=== PATIENT | female | born 1940 | race Caucasian/White ===

== ENCOUNTER 2017-04-20 21:30 | Inpatient (IN) | payer MEDICARE ==
[~2017-04-20 21:30] MED LIST: ISOVUE-370 76%-LOCM 1 ML ONE
[2017-04-20 22:16] LABS: Mean Platelet Volume 8.8 fL (7.4-10.4); Neutrophil 54 % (42-75); Red Blood Cell (RBC) Count 4.43 mill/uL (4.20-5.40); White Blood Cell (WBC) Count 8.2 thou/uL (4.8-10.8)
[2017-04-20 22:23] LABS: ALT (SGPT) 12 U/L (8-55); AST (SGOT) 15 U/L (5-34); Alkaline Phosphatase 42 U/L (40-150); Anion Gap 14 mmol/L (10-20); BUN (Urea Nitrogen) 28 mg/dL (9.8-20.1); Bilirubin, Total 0.2 mg/dL (0.2-1.2); Calc. Creatinine Clearance 0 mL/min (70-130); Calcium 9.3 mg/dL (7.8-10.44); Carbon Dioxide 25 mmol/L (23-31); Chloride 104 mmol/L (98-107); Estimated GFR-MDRD 52; Globulin 3.5 g/dL (2.4-3.5); Lipase 303 U/L (8-78); Protein, Total 7.1 g/dL (6.0-8.3)
[2017-04-20 22:26] LABS: Troponin I Less than 0.010 ng/mL (< 0.028)
[2017-04-20] MEDS ORDERED: Acetaminophen 500 MG TAB ONE (22:40)
--- NOTE | 2017-04-20 23:46 | CT ---
CT ABDOMEN WITH IV CONTRAST CT PELVIS WITH IV CONTRAST: Date: 04-20-17 History: Abdominal pain all day today. Comparison: 04-07-16 FINDINGS: Superior aspect of the dome of the liver is not imaged. Limited visualized lung bases are clear. Liver demonstrates mild decreased attenuation suggesting mild fatty infiltration. A gastric band is again noted in place and unchanged in position. The spleen, pancreas, bilateral adrenal glands, kidneys, and urinary bladder demonstrate a normal CT appearance. There is evidence of prior hysterectomy. Colonic diverticulosis is again present. No dilated loops of small bowel are present. There has been no interval change when compared to the prior exam. IMPRESSION: 1. No acute findings are seen in the abdomen or pelvis. 2. Gastric band in place and unchanged in position. 3. Colonic diverticulosis. 4. Hysterectomy. POS: [facility]
[2017-04-20 23:50] LABS: Bilirubin Negative (Negative); Blood, Urine Trace (Negative); Glucose, Urine (Dipstick) Negative (Negative); Ketone, Urine Negative (Negative); Nitrite Negative (Negative); Protein, Urine (Dipstick) Negative (Neg-Trace)
[2017-04-20 23:54] LABS: Bacteria/HPF None Seen HPF (None Seen); Hyaline Casts/LPF 0-3 HYALINE CAST LPF (0-3 Hyaline); Squamous Epithelial None Seen HPF (0-3); WBC/HPF None Seen HPF (0-3)
[2017-04-21] MEDS ORDERED: Ondansetron HCl/PF 4 MG/2 ML Vial IVP PRN (00:48)
[2017-04-21] MEDS ORDERED: Ondansetron ODT 4 MG TAB SL PRN (00:48)
[2017-04-21] MEDS ORDERED: Sodium Chloride 0.9% 1,000 ML IV SCH (00:49)
[2017-04-21 01:17] VITALS: BMI 37.7
[2017-04-21] MEDS: Sodium Chloride 0.9% 1,000 ML IV SCH ×3 (01:50→12:09)
[2017-04-21] MEDS ORDERED: Ondansetron ODT 4 MG TAB PO PRN (01:51)
[2017-04-21] MEDS ORDERED: Labetalol HCl 100 MG/20 ML VIAL SLOW IVP PRN (01:51)
[2017-04-21] MEDS ORDERED: Acetaminophen 650 MG in Premix Bag 1 BAG IVPB PRN (01:51)
--- NOTE | 2017-04-21 02:18 | HP ---
PRIMARY CARE PHYSICIAN: Dr. Ellison. CHIEF COMPLAINT: Abdominal pain. HISTORY OF PRESENT ILLNESS: Ms. Barajas is a pleasant 77-year-old female that has a history of Park inson's disease as well as hypertension and hypothyroidism. She was in her usual state of health un til this morning when she began having abdominal pain. She says it feels like somebody punched her in the stomach and it is a constant pain that has gotten progressively worse over the course of the day. She says it went around to the right side and she thought she may have had a kidney stone. Sona cazares says that she is unsure whether or not it is related to eating, but at lunch and dinner, the pain did get progressively worse. She had some nausea, but no vomiting. Her bowels have been normal and she rated the pain at about 8/10 and due to the severity of the pain, this is the reason she came t o the emergency room. In the ER, she had a CT scan of her abdomen, which was essentially negative, but her lipase was elevated at 303 and she is being admitted for presumed pancreatitis. She says sona cazares has never had any symptoms like this before and her abdominal surgeries include a lap band surgery in which she says that the lap band was complicated by having \\\\"hole in it\\\\" and a hysterectomy s he has had, but no other abdomen or pelvic surgeries. She says that her triglycerides were high, bu t only slightly high, and she does still have her gallbladder. She denies having any fevers or chil ls. REVIEW OF SYSTEMS: Constitutional: Again, no fevers, chills, no night sweats, no weight loss. RAYMUNDO NT: No headache, dizziness, visual changes, no sore throat, rhinorrhea, neck pain, no adenopathy. Pulmonary: No hemoptysis, no cough, no wheezing. Cardiovascular: She denies any chest pain or josh rtness of breath, no PND, no orthopnea. Gastrointestinal: As the history of present illness. Dora tourinary: No urinary frequency, hematuria or hesitancy. Neurologic: No focal weakness, numbness, no seizures. Psychiatric: No symptoms of anxiety or depression. Skin and Integument: No skin ch anges. No rash. PAST MEDICAL HISTORY: Significant for Parkinson's disease, cerebrovascular accident, hypothyroidism , hyperlipidemia, and hypertension. PAST SURGICAL HISTORY: She has had bilateral carpal tunnel release, bilateral total knee replacemen t, hysterectomy as well as a gastric lap band surgery. ALLERGIES: She says she cannot take NARCOTICS. SOCIAL HISTORY: She is a nonsmoker, nondrinker. Denies any drug use. FAMILY HISTORY: Significant for lung cancer in her father. Mother had dementia. CURRENT MEDICATIONS: Include Ultram 50-100 mg q.6 hours as needed, Bystolic 5 mg daily, levothyroxi ne 137 mcg daily, fenofibrate 134 mg daily, diclofenac 75 mg twice a day, Plavix 75 mg daily, vitami n D3 1000 units daily, carbidopa/levodopa 25/100 daily and aspirin 81 mg a day. PHYSICAL EXAMINATION: GENERAL: She is alert and oriented. She appears to be in no acute distress. VITAL SIGNS: Her blood pressure was 172/85, heart rate 68, respiratory rate 18, temperature is 98.8 . HEENT: Pupils are equal, round, and reactive. Extraocular muscles are intact. Her sclerae are ani cteric. Throat no erythema, no exudates. NECK: No adenopathy, no bruits. LUNGS: Clear. No wheezing, no rales. CARDIOVASCULAR: She has a normal S1, S2. I do not appreciate an S3 or S4. No murmurs, clicks or r ubs. ABDOMEN: Obese, it is soft. She has got some diffuse tenderness. There is no rebound, no guarding . Positive bowel sounds. EXTREMITIES: She has got some mild ankle edema. Her dorsalis pedis pulses are palpable. NEUROLOGICALLY: Exam is nonfocal. SIGNIFICANT LABORATORY DATA: White blood cell count 8.2, hemoglobin 13.6, hematocrit is 42, platele t count is 171. Sodium 139, potassium 4.3, chloride is 104, CO2 is 25, BUN of 28, creatinine 1.02, glucose is 110, lipase was 303. Urinalysis had some trace blood and 11-20 RBCs. ASSESSMENT AND PLAN: This is a 77-year-old female that presents to the emergency room with abdomina l pain as well as elevation in her lipase. She may have a mild pancreatitis, the etiology of which is unclear. She will be admitted to the medical floor and placed on bowel rest and IV fluids. Ther e is no mention of her gallbladder on the CT scan, therefore, we will get an abdominal ultrasound to see whether or not she has any gallstones or sludge in the gallbladder. We will also get a lipid p tyson to check her triglyceride level and if the etiology of the pancreatitis is unclear, then we mona l go ahead and consult Gastroenterology. 1. For her hypertension, her blood pressure is currently uncontrolled. We will place her on IV lab etalol as well as hydralazine for blood pressure control until she is able to tolerate p.o. 2. For hypothyroidism, we will restart her Synthroid once she is able to tolerate p.o. once again. Hopefully, this will be shortly as her symptoms seem relatively mild at this time. Should she brian in n.p.o. for several days which is unlikely, then we would start Synthroid IV.
[2017-04-21 05:38] LABS: Anion Gap 14 mmol/L (10-20); BUN (Urea Nitrogen) 23 mg/dL (9.8-20.1); Calc. Creatinine Clearance 81 mL/min (70-130); Calcium 8.7 mg/dL (7.8-10.44); Carbon Dioxide 21 mmol/L (23-31); Chloride 106 mmol/L (98-107); Cholesterol 138 mg/dl (< 200 Desired); Estimated GFR-MDRD 65; LDL Cholesterol, Calculated 84 mg/dL
--- NOTE | 2017-04-21 08:35 | ULT ---
ULTRASOUND ABDOMEN COMPLETE: HISTORY: 77-year-old female with acute pancreatitis. FINDINGS: The gallbladder has normal wall thickness and has no evidence of gallstones or sludge. The hepatic echogenicity is normal. The kidneys have normal echogenicity, and there is no hydronephrosis. Ther e is no splenomegaly. There is no abdominal aortic aneurysm. No free fluid is identified. The inf erior vena cava is visualized. The pancreas is visualized, although ultrasound is relatively insens itive for pancreatic pathology compared to CT and MRI. There is no biliary dilation. The common du ct caliber is 3 mm. IMPRESSION: Normal. reyna [] POS: [facility]
[2017-04-21] MEDS: Famotidine/PF 20 mg/2ml Vial SLOW IVP SCH ×2 (08:37→20:07)
[2017-04-21] MEDS: Enoxaparin Sodium 40 MG/0.4 ML SYRINGE SC SCH (08:38)
[2017-04-21] MEDS ORDERED: traMADol HCl 50 MG TAB PO SCH (09:00)
--- NOTE | 2017-04-21 10:44 | PDOC.PN ---
- Subjective Encounter Start Date: 04/21/17 Encounter Start Time: 08:15 Subjective: mild epigastric pain, no radiation now -: no nausea or vomiting -: last BM yesterday was normal - Objective Resuscitation Status: Resuscitation Status FULL:Full Resuscitation MAR Reviewed: Yes Vital Signs & Weight: Vital Signs (12 hours) Temp Pulse Resp BP Pulse Ox 04/21/17 07:25 98.7 F 67 16 143/73 H 93 L 04/21/17 04:00 98.7 F 62 16 151/80 H 92 L 04/21/17 01:51 98.8 F 68 18 93 L 04/21/17 00:30 98.8 F 68 18 172/85 H 93 L I&O: 04/20/17 04/21/17 04/22/17 06:59 06:59 06:59 Intake Total 1225 Balance 1225 Result Diagrams: 04/20/17 21:50 04/21/17 03:32 Phys Exam - Physical Examination HEENT: PERRLA, moist MMs Neck: no nodes, no JVD Respiratory: no wheezing, no rales Cardiovascular: RRR, no significant murmur Gastrointestinal: soft, no distention, positive bowel sounds no rigidity or guarding Musculoskeletal: no edema, pulses present Neurological: non-focal, moves all 4 limbs Psychiatric: A&O x 3 Dx/Plan (1) Abdominal pain Code(s): R10.9 - UNSPECIFIED ABDOMINAL PAIN Status: Acute Qualifiers: Abdominal location: epigastric Qualified Code(s): R10.13 - Epigastric pain (2) H/O: CVA (cerebrovascular accident) Code(s): Z86.73 - PRSNL HX OF TIA (TIA), AND CEREB INFRC W/O RESID DEFICITS Status: Chronic (3) HTN (hypertension) Code(s): I10 - ESSENTIAL (PRIMARY) HYPERTENSION Status: Chronic Qualifiers: Hypertension type: essential hypertension Qualified Code(s): I10 - Essential (primary) hypertension (4) Hypothyroidism Code(s): E03.9 - HYPOTHYROIDISM, UNSPECIFIED Status: Chronic Qualifiers: Hypothyroidism type: unspecified Qualified Code(s): E03.9 - Hypothyroidism , unspecified (5) Obesity (BMI 30-39.9) Code(s): E66.9 - OBESITY, UNSPECIFIED Status: Chronic (6) Parkinson disease Code(s): G20 - PARKINSON'S DISEASE Status: Chronic - Plan usg liver no ac abnormalities -: ?PUD, ?upper endoscopy per GI advice -: Lipase of 300 yesterday, will check in am, CT and usg no pancreatitis signs -: decrease iv fluids to 70mls/hr -: may start on diet after GI sees her. * . Review of Systems - Medications/Allergies Allergies/Adverse Reactions: Allergies Allergy/AdvReac Type Severity Reaction Status Date / Time hydrocodone Allergy Intermediate NAUSEA/VOMI Verified 07/31/15 12:48 TING Medications: Current Medications Enoxaparin Sodium (Lovenox) 40 mg SC 0900 [facility] Last Admin: 04/21/17 08:38 Dose: 40 mg Famotidine (Pepcid) 20 mg SLOW IVP Q12HR [facility] Last Admin: 04/21/17 08:37 Dose: 20 mg Hydralazine HCl (Apresoline) 10 mg SLOW IVP Q4H PRN PRN Reason: Systolic BP > 180 Acetaminophen 650 mg/ Device 65 mls @ 260 mls/hr IVPB Q6H PRN PRN Reason: Fever > 101 Stop: 04/22/17 01:52 Sodium Chloride (Normal Saline 0.9%) 1,000 mls @ 175 mls/hr IV .[id number] [facility] Last Admin: 04/21/17 08:36 Dose: 1,000 mls Labetalol HCl (Normodyne) 20 mg SLOW IVP Q4H PRN PRN Reason: Systolic BP > 180 Ondansetron HCl (Zofran Odt) 4 mg PO Q6H PRN PRN Reason: Nausea/Vomiting Ondansetron HCl (Zofran) 4 mg IVP Q6H PRN PRN Reason: Nausea/Vomiting Sodium Chloride (Flush - Normal Saline) 10 ml IVF Q12HR [facility] Last Admin: 04/21/17 09:25 Dose: 10 ml Sodium Chloride (Flush - Normal Saline) 10 ml IVF PRN PRN PRN Reason: Saline Flush
[2017-04-21] MEDS: Ondansetron HCl/PF 4 MG/2 ML Vial IVP PRN ×2 (12:06→20:08)
[2017-04-22] MEDS: Levothyroxine Sodium 112 MCG TAB PO SCH (06:25)
[2017-04-22] MEDS: Sodium Chloride 0.9% 1,000 ML IV SCH ×3 (06:25→22:03)
[2017-04-22] MEDS: Levothyroxine Sodium 25 MCG TAB PO SCH (06:25)
--- NOTE | 2017-04-22 06:33 | CON ---
DATE OF CONSULTATION: 04/21/2017 REFERRING PHYSICIAN: Dr. Tk Romero, [facility]. REASON FOR CONSULTATION: Abdominal pain, nausea. HISTORY OF PRESENT ILLNESS: Ms. Damaris Barajas is a very pleasant 77-year-old female a dmitted to the hospital yesterday with abdominal pain and nausea. The pain began suddenly around 2: 00 yesterday afternoon. The pain was over the epigastric area, right upper quadrant, and also more towards the right flank area. The pain is moderately severe. She had no fever or chills. She had no urinary symptoms. She has been having nausea off and on. The patient came to the ER and was hos pitalized after a diagnosis of pancreatitis was made. She had serum lipase over 300. An abdominal CAT scan did not show any acute pathology. This morning, she had an abdominal sonogram which showed significant gallstone. Abdominal pain persists and she has not seen any improvement since admissio n. She is on Toradol for pain relief. Apparently, she had taken Toradol few minutes before I walke d in there and she still states she has [id number] abdominal pain. The pain is actually ove r the anterior abdomen and does not radiate to the back. She had no similar episodes in the past. Her liver function tests are normal. The patient seldom drinks alcohol. The etiology of the pancre atitis is unclear at the present time. She has no prior history of any pancreatitis. She is passin g flatus. She has regular bowel movements. There is no other relevant history. ALLERGIES: Allergic to CODEINE makes her spaced out but does not bring any rash, etc. SOCIAL HISTORY: The patient does not smoke but drinks alcohol socially. She has had nothing to [place] over the last several years. MEDICAL ILLNESSES: 1. Morbid obesity, status post lap banding several years ago, which really did not help her as appa rently the banding broke down and she did not go back to replace it. 2. Parkinson disease. 3. CVA x2 with recovery. 4. Hypothyroidism. 5. Hyperlipidemia. 6. Hypertension. SURGERIES: 1. Status post bilateral carpal tunnel release. 2. Bilateral knee replacement. 3. Hysterectomy. 4. Gastric lap band surgery. FAMILY HISTORY: Mother with dementia. Father with lung cancer. MEDICATIONS: 1. Ultram 50-100 mg q.6 h. 2. Bystolic 5 mg once a day. 3. Levothyroxine 137 mcg once a day. 4. Fenofibrate 134 mg once a day. 5. Diclofenac 75 mg twice a day. 6. Plavix 75 once a day. 7. Vitamin D3 100 mg once a day. 8. Carbidopa/levodopa 25/100 mg daily. 9. Aspirin. REVIEW OF SYSTEMS: A 10-point system reviewed. Constitutional: No history of fever or chills. No history of chronic cough. No history of weight loss . Central Nervous System: Past history of seizure recovery . No history of seizure disorder. No history of chronic headache, no syn cope. Respiratory System: No history of chronic cough, hemoptysis, dyspnea. Cardiovascular System : No chest pain, no palpitation, no dyspnea, orthopnea, or PND. Gastrointestinal: As in history o f present illness. Genitourinary: No dysuria, hematuria, or frequency of urination. Musculoskelet al: History of arthralgias and back pain. Neuropsychiatric: No history of depression or anxiety. Endocrine: Unremarkable. PHYSICAL EXAMINATION: GENERAL: The patient is obese, appears very comfortable. She is in no acute distress. VITAL SIGNS: Stable. She is afebrile. Her pulse is 68, blood pressure is 170/80. HEENT: Conjunctivae are clear. NECK: Supple. No adenitis or thyromegaly noted. CARDIOVASCULAR SYSTEM: First and second heart sounds normal. LUNGS: Clear to auscultation. ABDOMEN: Pendulous and flabby, but soft to palpate. She has a scar around the umbilical area horiz ontally. I can feel lap banding over the epigastric area. She is tender over the epigastric area, right upper quadrant going towards the right flank. There is no rebound or guarding. No organomega ly or masses. Bowel sounds are normal. EXTREMITIES: Reveal no edema. LABORATORY AND X-RAY FINDINGS: CBC: WBC 8200, hemoglobin 13.6, hematocrit 42, platelet count is 17 1,000. Sodium 139, potassium 4.3, chloride 104, bicarb 25, BUN is 28, creatinine is 1.02, glucose 1 10, lipase 303. UA shows trace blood and 11-20 rbc's. An abdominal CAT scan, abdominal sonogram was negative. CLINICAL IMPRESSION: 1. Acute pancreatitis, etiology unclear. Her liver function tests are normal. Also, her abdominal sonogram and CAT scan showed no definite gallstones. She has no history of alcohol abuse. 2. Obesity, status post gastric lap banding. 3. Parkinson disease. 4. Hypothyroidism. 5. Hypertension. 6. Hyperlipidemia. 7. Status post cerebrovascular accident with recovery. 8. Status post bilateral knee replacement. RECOMMENDATIONS: 1. N.P.O. 2. May try morphine 4 mg every 8 hours for pain relief. 3. Follow up amylase.
[2017-04-22 07:57] LABS: #Eosinphils 0.1 thou/uL (0.0-0.7); #Lymphocytes 1.5 thou/uL (1.20-3.40); #Monocytes 0.8 thou/uL (0.11-0.59); #Neutrophils 4.1 thou/uL (1.40-6.50); %Basophils 0.7 % (0.0-1.0); %Eosinophils 1.6 % (0.0-10.0); %Lymphocytes 22.9 % (21.0-51.0); %Monocytes 11.9 % (0.0-10.0); Hematocrit 38.4 % (36.0-47.0); Mean Platelet Volume 8.3 fL (7.4-10.4); Red Blood Cell (RBC) Count 3.99 mill/uL (4.20-5.40); White Blood Cell (WBC) Count 6.5 thou/uL (4.8-10.8)
[2017-04-22] MEDS: Famotidine/PF 20 mg/2ml Vial SLOW IVP SCH ×2 (08:03→20:11)
[2017-04-22] MEDS: Nebivolol HCl 5 MG TAB PO SCH (08:03)
[2017-04-22] MEDS: Enoxaparin Sodium 40 MG/0.4 ML SYRINGE SC SCH (08:04)
[2017-04-22] MEDS: Fenofibrate Nanocrystallized 145 MG TAB PO SCH (08:07)
[2017-04-22 08:24] LABS: ALT (SGPT) 15 U/L (8-55); AST (SGOT) 14 U/L (5-34); Alkaline Phosphatase 31 U/L (40-150); Anion Gap 11 mmol/L (10-20); BUN (Urea Nitrogen) 12 mg/dL (9.8-20.1); Bilirubin, Total 0.4 mg/dL (0.2-1.2); Calc. Creatinine Clearance 85 mL/min (70-130); Calcium 8.7 mg/dL (7.8-10.44); Carbon Dioxide 25 mmol/L (23-31); Chloride 105 mmol/L (98-107); Estimated GFR-MDRD 68; Lipase 252 U/L (8-78); Protein, Total 6.3 g/dL (6.0-8.3)
[2017-04-22] MEDS ORDERED: LEVODOPA PO SCH (09:00)
[2017-04-22] MEDS ORDERED: CARBIDOPA PO SCH (09:00)
[2017-04-22] MEDS ORDERED: FENOFIBRATE MICRONIZED 134 MG PO SCH (09:00)
[2017-04-22] MEDS ORDERED: Non-Formulary Item 1 EACH (Levothyroxine Sodium [Synthroid] 137 MCG) PO SCH (09:00)
--- NOTE | 2017-04-22 13:39 | PDOC.PN ---
- Subjective Encounter Start Date: 04/22/17 Encounter Start Time: 08:00 Subjective: no abd pain now or nausea -: feels better -: is amb in hallway - Objective Resuscitation Status: Resuscitation Status FULL:Full Resuscitation MAR Reviewed: Yes Vital Signs & Weight: Vital Signs (12 hours) Temp Pulse Resp BP Pulse Ox 04/22/17 08:00 98.9 F 76 20 157/86 H 96 04/22/17 04:00 99.0 F 94 16 158/73 H 93 L I&O: 04/21/17 04/22/17 04/23/17 06:59 06:59 06:59 Intake Total 1225 2044 600 Balance 1225 2044 600 Result Diagrams: 04/22/17 07:45 04/22/17 07:45 Phys Exam - Physical Examination HEENT: PERRLA, moist MMs Neck: no JVD, supple Respiratory: no wheezing, no rales Cardiovascular: RRR, no significant murmur Gastrointestinal: soft, no distention, positive bowel sounds Musculoskeletal: no edema, pulses present Neurological: non-focal, moves all 4 limbs Psychiatric: A&O x 3 Dx/Plan (1) Abdominal pain Code(s): R10.9 - UNSPECIFIED ABDOMINAL PAIN Status: Acute Qualifiers: Abdominal location: epigastric Qualified Code(s): R10.13 - Epigastric pain Comment: ?ac pancreatitis (2) H/O: CVA (cerebrovascular accident) Code(s): Z86.73 - PRSNL HX OF TIA (TIA), AND CEREB INFRC W/O RESID DEFICITS Status: Chronic (3) HTN (hypertension) Code(s): I10 - ESSENTIAL (PRIMARY) HYPERTENSION Status: Chronic Qualifiers: Hypertension type: essential hypertension Qualified Code(s): I10 - Essential (primary) hypertension (4) Hypothyroidism Code(s): E03.9 - HYPOTHYROIDISM, UNSPECIFIED Status: Chronic Qualifiers: Hypothyroidism type: unspecified Qualified Code(s): E03.9 - Hypothyroidism , unspecified (5) Obesity (BMI 30-39.9) Code(s): E66.9 - OBESITY, UNSPECIFIED Status: Chronic (6) Parkinson disease Code(s): G20 - PARKINSON'S DISEASE Status: Chronic - Plan pt is npo -: may advance diet per GI advice -: both amylase and lipase are marginally above normal -: CT abd and usg did not reveal any hepato-pancreatic abnormality -: further w/u per GI advice * . Review of Systems - Medications/Allergies Allergies/Adverse Reactions: Allergies Allergy/AdvReac Type Severity Reaction Status Date / Time hydrocodone Allergy Intermediate NAUSEA/VOMI Verified 07/31/15 12:48 TING Medications: Current Medications Carbidopa/Levodopa (Sinemet 25-100) 1 tab PO 1500 [id number] Enoxaparin Sodium (Lovenox) 40 mg SC 0900 [facility] Last Admin: 04/22/17 08:04 Dose: 40 mg Famotidine (Pepcid) 20 mg SLOW IVP Q12HR [facility] Last Admin: 04/22/17 08:03 Dose: 20 mg Fenofibrate (Tricor) 145 mg PO DAILY [facility] Last Admin: 04/22/17 08:07 Dose: 145 mg Hydralazine HCl (Apresoline) 10 mg SLOW IVP Q4H PRN PRN Reason: Systolic BP > 180 Sodium Chloride (Normal Saline 0.9%) 1,000 mls @ 70 mls/hr IV .[id number] [facility] Last Admin: 04/22/17 08:03 Dose: 1,000 mls Labetalol HCl (Normodyne) 20 mg SLOW IVP Q4H PRN PRN Reason: Systolic BP > 180 Levothyroxine Sodium (Synthroid) 112 mcg PO 0600 [facility] Last Admin: 04/22/17 06:25 Dose: 112 mcg Levothyroxine Sodium (Synthroid) 25 mcg PO 0600 [facility] Last Admin: 04/22/17 06:25 Dose: 25 mcg Morphine Sulfate (Morphine Sulfate) 4 mg SLOW IVP Q8H PRN PRN Reason: Pain Last Admin: 04/21/17 20:06 Dose: 4 mg Nebivolol (Bystolic) 5 mg PO DAILY [facility] Last Admin: 04/22/17 08:03 Dose: 5 mg Ondansetron HCl (Zofran Odt) 4 mg PO Q6H PRN PRN Reason: Nausea/Vomiting Ondansetron HCl (Zofran) 4 mg IVP Q6H PRN PRN Reason: Nausea/Vomiting Last Admin: 04/21/17 20:08 Dose: 4 mg Sodium Chloride (Flush - Normal Saline) 10 ml IVF Q12HR [facility] Last Admin: 10/11/17 08:14 Dose: Not Given Sodium Chloride (Flush - Normal Saline) 10 ml IVF PRN PRN PRN Reason: Saline Flush
--- NOTE | 2017-04-22 14:10 | PRG ---
DATE OF SERVICE: 04/22/2017 HISTORY OF PRESENT ILLNESS: Ms. Damaris Barajas is a very pleasant 77-year-old female h ospitalized with abdominal pain and nausea. She was found to have elevated lipase suggestion of colby creatitis. An abdominal CAT scan and a sonogram negative for any pathology. The etiology of pancre atitis is unclear at the present time. She is feeling better today. Her abdominal pain is much les s. She has no more nausea. She actually feels hungry and she wants to eat something. She is passi ng flatus. Her lipase has come down slightly since her admission. The admitting lipase was 303 and today it is down to 152. Lipase is down to 186. Her chem panel is normal. LFTs are normal. Her CBC is normal. PHYSICAL EXAMINATION: GENERAL: Patient appears comfortable. VITAL SIGNS: She is afebrile, pulse is 76, blood pressure 157/86. CARDIOVASCULAR: First and second heart sounds normal. LUNGS: Clear to auscultation. ABDOMEN: Soft to palpate. Abdomen is mildly tender over the epigastric area. There is no rebound or guarding. Bowel sounds are active. RECOMMENDATIONS: 1. Clear liquid diet. 2. Follow up lipase tomorrow and advance diet as tolerated.
[2017-04-22] MEDS: Carbidopa/Levodopa 25-100 mg Tablet PO SCH (14:43)
[2017-04-23] MEDS: Levothyroxine Sodium 25 MCG TAB PO SCH (06:05)
[2017-04-23] MEDS: Levothyroxine Sodium 112 MCG TAB PO SCH (06:05)
[2017-04-23 07:07] LABS: Anion Gap 10 mmol/L (10-20); BUN (Urea Nitrogen) 12 mg/dL (9.8-20.1); Calc. Creatinine Clearance 82 mL/min (70-130); Calcium 8.9 mg/dL (7.8-10.44); Carbon Dioxide 27 mmol/L (23-31); Chloride 106 mmol/L (98-107); Estimated GFR-MDRD 66; Lipase 174 U/L (8-78)
[2017-04-23 07:19] LABS: Mean Platelet Volume 8.5 fL (7.4-10.4); Red Blood Cell (RBC) Count 3.95 mill/uL (4.20-5.40)
[2017-04-23 07:29] LABS: Neutrophil 50 % (42-75); Reactive Lymphocytes 2 % (0-10)
[2017-04-23] MEDS: Famotidine/PF 20 mg/2ml Vial SLOW IVP SCH (08:49)
[2017-04-23] MEDS: Enoxaparin Sodium 40 MG/0.4 ML SYRINGE SC SCH (08:50)
[2017-04-23] MEDS: Fenofibrate Nanocrystallized 145 MG TAB PO SCH (08:50)
[2017-04-23] MEDS: Nebivolol HCl 5 MG TAB PO SCH (08:57)
[2017-04-23] MEDS: Carbidopa/Levodopa 25-100 mg Tablet PO SCH (14:24)
--- NOTE | 2017-04-23 14:32 | PDOC.PN ---
- Subjective Encounter Start Date: 04/23/17 Encounter Start Time: 10:30 Subjective: no abd pain or nausea -: is tolerating oral solid diet - Objective Resuscitation Status: Resuscitation Status FULL:Full Resuscitation MAR Reviewed: Yes Vital Signs & Weight: Vital Signs (12 hours) Temp Pulse Resp BP Pulse Ox 04/23/17 08:00 99 F 72 20 152/81 H 95 I&O: 04/22/17 04/23/17 04/24/17 06:59 06:59 06:59 Intake Total 2044 840 1440 Balance 2044 840 1440 Result Diagrams: 04/23/17 06:26 04/23/17 06:26 Phys Exam - Physical Examination HEENT: PERRLA, moist MMs Neck: no JVD, supple Respiratory: no wheezing, no rales Cardiovascular: RRR, no significant murmur Gastrointestinal: soft, non-tender, no distention, positive bowel sounds Musculoskeletal: no edema, pulses present Neurological: non-focal, moves all 4 limbs Psychiatric: A&O x 3 Dx/Plan (1) Abdominal pain Code(s): R10.9 - UNSPECIFIED ABDOMINAL PAIN Status: Acute Qualifiers: Abdominal location: epigastric Qualified Code(s): R10.13 - Epigastric pain Comment: ?ac pancreatitis (2) H/O: CVA (cerebrovascular accident) Code(s): Z86.73 - PRSNL HX OF TIA (TIA), AND CEREB INFRC W/O RESID DEFICITS Status: Chronic (3) HTN (hypertension) Code(s): I10 - ESSENTIAL (PRIMARY) HYPERTENSION Status: Chronic Qualifiers: Hypertension type: essential hypertension Qualified Code(s): I10 - Essential (primary) hypertension (4) Hypothyroidism Code(s): E03.9 - HYPOTHYROIDISM, UNSPECIFIED Status: Chronic Qualifiers: Hypothyroidism type: unspecified Qualified Code(s): E03.9 - Hypothyroidism , unspecified (5) Obesity (BMI 30-39.9) Code(s): E66.9 - OBESITY, UNSPECIFIED Status: Chronic (6) Parkinson disease Code(s): G20 - PARKINSON'S DISEASE Status: Chronic - Plan lipase is receding -: clinically has no abd pain and is tolerating oral diet -: further plan per GI advice -: home meds -: may dc iv fluids this afternoon after current bag * . Review of Systems - Medications/Allergies Allergies/Adverse Reactions: Allergies Allergy/AdvReac Type Severity Reaction Status Date / Time hydrocodone Allergy Intermediate NAUSEA/VOMI Verified 07/31/15 12:48 TING Medications: Current Medications Carbidopa/Levodopa (Sinemet 25-100) 1 tab PO 1500 [facility] Last Admin: 04/23/17 14:24 Dose: 1 tab Enoxaparin Sodium (Lovenox) 40 mg SC 0900 [facility] Last Admin: 04/23/17 08:50 Dose: 40 mg Famotidine (Pepcid) 20 mg SLOW IVP Q12HR [facility] Last Admin: 04/23/17 08:49 Dose: 20 mg Fenofibrate (Tricor) 145 mg PO DAILY [facility] Last Admin: 04/23/17 08:50 Dose: 145 mg Hydralazine HCl (Apresoline) 10 mg SLOW IVP Q4H PRN PRN Reason: Systolic BP > 180 Sodium Chloride (Normal Saline 0.9%) 1,000 mls @ 70 mls/hr IV .[id number] [facility] Last Admin: 04/22/17 22:03 Dose: 1,000 mls Labetalol HCl (Normodyne) 20 mg SLOW IVP Q4H PRN PRN Reason: Systolic BP > 180 Levothyroxine Sodium (Synthroid) 112 mcg PO 0600 [facility] Last Admin: 04/23/17 06:05 Dose: 112 mcg Levothyroxine Sodium (Synthroid) 25 mcg PO 0600 [facility] Last Admin: 04/23/17 06:05 Dose: 25 mcg Morphine Sulfate (Morphine Sulfate) 4 mg SLOW IVP Q8H PRN PRN Reason: Pain Last Admin: 04/21/17 20:06 Dose: 4 mg Nebivolol (Bystolic) 5 mg PO DAILY [facility] Last Admin: 04/23/17 08:57 Dose: 5 mg Ondansetron HCl (Zofran Odt) 4 mg PO Q6H PRN PRN Reason: Nausea/Vomiting Ondansetron HCl (Zofran) 4 mg IVP Q6H PRN PRN Reason: Nausea/Vomiting Last Admin: 04/21/17 20:08 Dose: 4 mg Sodium Chloride (Flush - Normal Saline) 10 ml IVF Q12HR [facility] Last Admin: 04/23/17 08:57 Dose: Not Given Sodium Chloride (Flush - Normal Saline) 10 ml IVF PRN PRN PRN Reason: Saline Flush
[2017-04-23] MEDS: Ondansetron HCl/PF 4 MG/2 ML Vial IVP PRN (18:26)
[2017-04-23] MEDS: Famotidine 20 MG TAB PO SCH (20:26)
[2017-04-23] MEDS: Sodium Chloride 0.9% 1,000 ML IV SCH (20:28)
--- NOTE | 2017-04-23 21:01 | PRG ---
DATE OF SERVICE: 04/23/2017 HISTORY OF PRESENT ILLNESS: Ms. Damaris Barajas is a very pleasant, 77-year-old , hospit alized 2 days ago with abdominal pain and nausea. The patient was found to have a mildly elevated l ipase of over 305. She has been n.p.o. for 24 hours and was on a clear liquid diet yesterday. She is tolerating clear liquid diet and does state today this morning, the diet was advanced to a regula r diet. She has had 2 meals per day. She has no abdominal pain or no nausea. She feels fine. Her lipase is down to 174. PHYSICAL EXAMINATION: GENERAL: Appears comfortable. VITAL SIGNS: Stable. She is afebrile. Her pulse is 72, blood pressure is 152/81. CARDIOVASCULAR: Within normal limits. ABDOMEN: Soft to palpate. Abdomen is mildly tender on deep palpation of the epigastric area. Over all, the exam is benign. CLINICAL IMPRESSION: Resolving pancreatitis, etiology unclear. PLAN: Recommend diet as tolerated, and if she does well, consider discharge home tomorrow.
[2017-04-24] MEDS: Levothyroxine Sodium 112 MCG TAB PO SCH (05:25)
[2017-04-24] MEDS: Levothyroxine Sodium 25 MCG TAB PO SCH (05:25)
[2017-04-24 08:21] VITALS: BP 172/85; TEMP 98.9
[2017-04-24] MEDS ORDERED: Aspirin 81 mg Enteric Coated Tablet PO SCH (09:00)
[2017-04-24] MEDS ORDERED: Clopidogrel Bisulfate 75 MG TAB PO SCH (09:00)
[2017-04-24] MEDS: Nebivolol HCl 5 MG TAB PO SCH (09:16)
[2017-04-24] MEDS: Fenofibrate Nanocrystallized 145 MG TAB PO SCH (09:16)
[2017-04-24] MEDS: Famotidine 20 MG TAB PO SCH (09:17)
[2017-04-24] MEDS: Enoxaparin Sodium 40 MG/0.4 ML SYRINGE SC SCH (11:08)
--- NOTE | 2017-04-24 17:02 | PDOC.PN ---
- Subjective Encounter Start Date: 04/24/17 Encounter Start Time: 08:25 Subjective: no abd pain or nausea -: is tolerating oral diet - Objective Resuscitation Status: Resuscitation Status FULL:Full Resuscitation MAR Reviewed: Yes Vital Signs & Weight: Vital Signs (12 hours) Temp Pulse Resp BP BP Pulse Ox 04/24/17 09:16 71 172/85 H 04/24/17 08:51 98.9 F 71 14 93 L 04/24/17 08:20 98.9 F 71 14 172/85 H 93 L I&O: 04/23/17 04/24/17 04/25/17 06:59 06:59 06:59 Intake Total 840 2490 Output Total 1 Balance 840 2489 Result Diagrams: 04/23/17 06:26 04/23/17 06:26 Phys Exam - Physical Examination HEENT: PERRLA, moist MMs Neck: no JVD, supple Respiratory: no wheezing, no rales Cardiovascular: RRR, no significant murmur Gastrointestinal: soft, non-tender, no distention, positive bowel sounds Musculoskeletal: no edema, pulses present Neurological: non-focal, moves all 4 limbs Psychiatric: A&O x 3 Dx/Plan (1) Abdominal pain Code(s): R10.9 - UNSPECIFIED ABDOMINAL PAIN Status: Acute Qualifiers: Abdominal location: epigastric Qualified Code(s): R10.13 - Epigastric pain Comment: ?ac pancreatitis (2) H/O: CVA (cerebrovascular accident) Code(s): Z86.73 - PRSNL HX OF TIA (TIA), AND CEREB INFRC W/O RESID DEFICITS Status: Chronic (3) HTN (hypertension) Code(s): I10 - ESSENTIAL (PRIMARY) HYPERTENSION Status: Chronic Qualifiers: Hypertension type: essential hypertension Qualified Code(s): I10 - Essential (primary) hypertension (4) Hypothyroidism Code(s): E03.9 - HYPOTHYROIDISM, UNSPECIFIED Status: Chronic Qualifiers: Hypothyroidism type: unspecified Qualified Code(s): E03.9 - Hypothyroidism , unspecified (5) Obesity (BMI 30-39.9) Code(s): E66.9 - OBESITY, UNSPECIFIED Status: Chronic (6) Parkinson disease Code(s): G20 - PARKINSON'S DISEASE Status: Chronic - Plan lipase levels have receded -: clinically no symptoms of pancreatitis -: dc pt home -: to f/u with in 4 weeks * .
--- NOTE | 2017-04-24 20:22 | DIS ---
DATE OF ADMISSION: 04/21/2017 DATE OF DISCHARGE: 04/24/2017 DISCHARGE DISPOSITION: To home. PRIMARY DISCHARGE DIAGNOSIS: Possible mild pancreatitis, resolved. SECONDARY DISCHARGE DIAGNOSES: History of cerebrovascular accident, hypertension, hypothyroidism, o besity, Parkinson's disease. PROCEDURES DONE DURING HOSPITALIZATION: The patient has had CT of the abdomen and pelvis done, whic h showed no acute findings seen in the abdomen or pelvis. There is colonic diverticulosis. Right u pper quadrant ultrasound was within normal limits. H\T\H 12 and 38, platelet count 151. Initial li pase was 303 with a discharge numbers of 174. Liver function tests were within normal limits. Trig lycerides was 120. DISCHARGE MEDICATIONS: Aspirin 81 mg p.o. daily, Norvasc 5 mg p.o. daily, Carbidopa/levodopa 25/100 mg p.o. daily, vitamin D3 1000 units p.o. daily, Plavix 75 mg p.o. daily, Cymbalta 60 mg p.o. daily , fenofibrate 134 mg p.o. daily, levothyroxine 137 mcg p.o. daily, Bystolic 5 mg p.o. daily and Ultr am p.r.n. for pain. ALLERGIES: HYDROCODONE. INPATIENT CONSULTS: Dr. Bang for Gastroenterology. BRIEF COURSE DURING HOSPITALIZATION: Patient came to ER with complaints of abdominal pain. This wa s in the epigastric area with radiation to the right side. Her initial lipase was elevated at 303. The patient has had a CT scan of the abdomen and right upper quadrant ultrasound, none of which rev ealed any pancreatic or biliary pathology. Her abdominal pain completely resolved. She was kept n. p.o. for initial 24 hours and was slowly weaned into solid food at the time of discharge. She has h ad consultation with Dr. Bang for Gastroenterology. The patient needs to follow up with Dr. Ra rosa, fashion consultant sales in 4 weeks. She is otherwise hemodynamically stable with complete resol ution of her abdominal pain. Please see a [id number] documentation on [employer] for the day of dis charge.
== END 2017-04-24 14:31 | disposition home or self-care (01) | DRG 440 ==
LOC: ERS 21:30 → T4-A 23:30
PROVIDERS: ADMIT Internal Medicine; ATTEND Internal Medicine
DX: K85.90 Acute pancreatitis without necrosis or infection, unspecified (principal); G20 Parkinson's disease; Z68.37 Body mass index [BMI] 37.0-37.9, adult; I10 Essential (primary) hypertension; E03.9 Hypothyroidism, unspecified; E78.5 Hyperlipidemia, unspecified; Z98.84 Bariatric surgery status; Z86.73 Personal history of transient ischemic attack (TIA), and cerebral infarction without residual deficits; K57.90 Diverticulosis of intestine, part unspecified, without perforation or abscess without bleeding; E66.01 Morbid (severe) obesity due to excess calories
CPT/HCPCS: 36415; 74177; 76700; 80048; 80053; 80061; 81003; 81015; 82150; 82553; 83690; 83880; 84484; 85025; 93005; 94760; A4216; J1650; J2270; J2405; S0028

== ENCOUNTER 2017-07-01 08:03 | Outpatient (CLI) | payer MEDICARE | END 2017-07-01 08:04 | disposition home or self-care (01) | LOC: BICMAMMO 08:03 | PROVIDERS: ATTEND Family Medicine | DX: Z12.31 Encounter for screening mammogram for malignant neoplasm of breast (principal); R92.1 Mammographic calcification found on diagnostic imaging of breast | CPT/HCPCS: 77063; G0202; 77067 ==

== ENCOUNTER 2018-07-29 11:19 | Day surgery (SDC) | payer MEDICARE ==
[2018-07-28 14:52] VITALS: BMI 36.6
[2018-07-29] MEDS ORDERED: Succinylcholine Chloride 20 MG/ML 10 ml SYRINGE FS ONE (11:51)
[2018-07-29] MEDS ORDERED: Ondansetron PF 4 MG/2 ML Vial ONE (11:51)
[2018-07-29] MEDS ORDERED: Dexamethasone 20 MG/5 ML VIAL ONE (11:51)
[2018-07-29] MEDS ORDERED: Lidocaine 1% PF 5 ML VIAL ONE (11:51)
[2018-07-29] MEDS ORDERED: PROPOFOL 200 MG/20 ML VIAL ONE (11:51)
[2018-07-29 12:53] LABS: Hemoglobin 14.8 g/dL (12.0-16.0)
[2018-07-29 13:12] LABS: Anion Gap 13 mmol/L (10-20); BUN (Urea Nitrogen) 25 mg/dL (9.8-20.1); Calc. Creatinine Clearance 65 mL/min (70-130); Calcium 9.7 mg/dL (7.8-10.44); Carbon Dioxide 28 mmol/L (23-31); Chloride 102 mmol/L (98-107); Estimated GFR-MDRD 53; Glucose 107 mg/dL (83-110); Potassium 5.2 mmol/L (3.5-5.1); Sodium 138 mmol/L (136-145)
[2018-07-29] MEDS ORDERED: EPINEPHrine 1 MG/ML AMP ONE (14:27)
[2018-07-29] MEDS ORDERED: Midazolam HCl 2 mg/2 ml Vial ONE (14:29)
[2018-07-29] MEDS ORDERED: Fentanyl 100 MCG/2 ML VIAL ONE (14:29)
--- NOTE | 2018-07-30 10:48 | OP ---
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 PROCEDURE PERFORMED: Microsuspension laryngoscopy with bilateral vocal cord injection using Prolaryn gel. PROCEDURE IN DETAIL: After consent was obtained, the patient was identified, brought to the operating room and placed on the operating table in supine position. Jet ventilating anesthesia was obtained via Eran jet ventilating tube, and the patient is positioned for surgery. The patient was suspended using the operating microscope and larynx was visualized with the 30 degrees scope. The medial aspect of the vocal folds was injected conservatively to add bulk and its substance to the middle portion of the vocal folds and the airway was preserved. The patient was then awakened, extubated, and taken to recovery room in stable condition prior to discharge home. Job ID: [id number]
--- NOTE | 2018-07-30 21:03 | EKG ---
Test Reason : PREOP Blood Pressure : / mmHG Vent. Rate : 062 BPM Atrial Rate : 062 BPM P-R Int : 224 ms QRS Dur : 076 ms QT Int : 418 ms P-R-T Axes : 014 019 083 degrees QTc Int : 424 ms Sinus rhythm with 1st degree A-V block Possible Inferior infarct , age undetermined Abnormal ECG When compared with ECG of 20-APR-2017 21:38, No significant change was found Confirmed by Abiel MEJIA ([id number]) on 07/30/2018 9:03:07 PM Referred By: YENNY Confirmed By:Abiel MEJIA
== END 2018-07-29 16:40 | disposition home or self-care (01) ==
LOC: SDC 11:19
PROVIDERS: ATTEND Specialist
PROC: 3E0F8GC Introduction of Other Therapeutic Substance into Respiratory Tract, Via Natural or Artificial Opening Endoscopic (ICD-10-PCS; principal; 2018-07-29)
DX: J38.3 Other diseases of vocal cords (principal); J38.7 Other diseases of larynx; I69.920 Aphasia following unspecified cerebrovascular disease; I69.954 Hemiplegia and hemiparesis following unspecified cerebrovascular disease affecting left non-dominant side; I11.0 Hypertensive heart disease with heart failure; I50.32 Chronic diastolic (congestive) heart failure; E78.5 Hyperlipidemia, unspecified; F41.9 Anxiety disorder, unspecified; F32.9 Major depressive disorder, single episode, unspecified; E03.9 Hypothyroidism, unspecified; M19.90 Unspecified osteoarthritis, unspecified site; G47.30 Sleep apnea, unspecified; Z96.649 Presence of unspecified artificial hip joint; Z90.710 Acquired absence of both cervix and uterus; Z98.84 Bariatric surgery status; Z88.5 Allergy status to narcotic agent; Z79.82 Long term (current) use of aspirin; Z79.02 Long term (current) use of antithrombotics/antiplatelets; Z79.899 Other long term (current) drug therapy; Z98.890 Other specified postprocedural states
CPT/HCPCS: 80048; 85014; 85018; 93005; 93010; J0171; J1100; J2001; J2250; J2405; J2704; J3010

== ENCOUNTER 2018-08-22 12:19 | Emergency (ER) | payer MEDICARE ==
[2018-08-22] MEDS ORDERED: Ondansetron PF 4 MG/2 ML Vial ONE ×2 (12:51→17:34)
[2018-08-22 12:58] LABS: #Basophils 0.1 thou/uL (0.0-0.2); #Eosinphils 0.1 thou/uL (0.0-0.7); #Lymphocytes 2.2 thou/uL (1.20-3.40); #Monocytes 0.4 thou/uL (0.11-0.59); #Neutrophils 2.6 thou/uL (1.40-6.50); %Basophils 1.2 % (0.0-1.0); %Eosinophils 1.6 % (0.0-10.0); %Lymphocytes 41.3 % (21.0-51.0); %Monocytes 7.2 % (0.0-10.0); %Neutrophils 48.8 % (42.0-75.0); Hemoglobin 14.7 g/dL (12.0-16.0); Mean Corpuscular HGB CONC 32.7 g/dL (32.0-36.0); Mean Corpuscular Hemoglobin 31.5 pg (27.0-31.0); Mean Corpuscular Volume 96.4 fL (78.0-98.0); Mean Platelet Volume 10.1 fL (7.4-10.4); Platelet Count 181 thou/uL (130-400); RBC Distribution Width 13.2 % (11.5-14.5); Red Blood Cell (RBC) Count 4.66 mill/uL (4.20-5.40); White Blood Cell (WBC) Count 5.3 thou/uL (4.8-10.8)
[2018-08-22 13:23] LABS: ALT (SGPT) 17 U/L (8-55); AST (SGOT) 17 U/L (5-34); Albumin 3.8 g/dL (3.4-4.8); Alkaline Phosphatase 50 U/L (40-150); Anion Gap 14 mmol/L (10-20); BUN (Urea Nitrogen) 20 mg/dL (9.8-20.1); Bilirubin, Total 0.4 mg/dL (0.2-1.2); Calc. Creatinine Clearance 0 mL/min (70-130); Calcium 9.2 mg/dL (7.8-10.44); Carbon Dioxide 25 mmol/L (23-31); Chloride 102 mmol/L (98-107); Estimated GFR-MDRD 43; Globulin 3.2 g/dL (2.4-3.5); Glucose 143 mg/dL (83-110); Lipase 30 U/L (8-78); Potassium 4.3 mmol/L (3.5-5.1); Sodium 137 mmol/L (136-145)
--- NOTE | 2018-08-22 14:12 | RAD ---
SIGLE VIEW OF THE CHEST: COMPARISON: 01/20/2016. HISTORY: Diarrhea. Dizziness. FINDINGS: Single view of the chest shows a normal sized cardiomediastinal silhouette. There is no evidence of c onsolidation, mass, or pleural effusion. Degenerative changes are seen in the spine. IMPRESSION: No evidence of acute cardiopulmonary disease. POS: [facility]
== END 2018-08-22 14:20 | disposition home or self-care (01) ==
LOC: ERS 12:19
DX: E86.0 Dehydration (principal); R19.7 Diarrhea, unspecified; E03.9 Hypothyroidism, unspecified; I10 Essential (primary) hypertension; Z79.899 Other long term (current) drug therapy
CPT/HCPCS: 71045; 80053; 83690; 84484; 85025; 93005; 96361; 96374; J2405

== ENCOUNTER 2019-05-03 11:00 | Outpatient (CLI) | payer MEDICARE ==
--- NOTE | 2019-05-03 11:52 | MMO ---
Bilateral MAMMO Bilat Screen [facility]. CLINICAL HISTORY: Patient is 79 years old and is seen for screening. The patient has no family history of breast cancer. The patient has no personal history of cancer. VIEWS: The views performed were: bilateral craniocaudal with tomosynthesis; bilateral mediolateral oblique with tomosynthesis; left exaggerated craniocaudal; and right craniocaudal. FILMS COMPARED: The present examination has been compared to prior imaging studies performed at [facility] on 07/01/2017, and at [facility] on 04/30/2009 and 05/30/2014. This study has been interpreted with the assistance of computer-aided detection. MAMMOGRAM FINDINGS: The breasts are heterogeneously dense, which could obscure a lesion on mammography. There are stable benign appearing calcifications seen in both breasts. There are no suspicious masses, suspicious calcifications, or new areas of architectural distortion. IMPRESSION: THERE IS NO MAMMOGRAPHIC EVIDENCE OF MALIGNANCY. A ROUTINE FOLLOW-UP MAMMOGRAM IN 1 YEAR IS RECOMMENDED. THE RESULTS OF THIS EXAM WERE SENT TO THE PATIENT. ACR BI-RADS Category 2 - Benign finding MAMMOGRAPHY NOTE: 1. A negative mammogram report should not delay a biopsy if a dominant of clinically suspicious mass is present. 2. Approximately 10% to 15% of breast cancers are not detected by mammography. 3. Adenosis and dense breasts may obscure an underlying neoplasm. Reported by: NEERAJ PRYOR MD Electonically Signed: [id number]
== END 2019-05-03 11:01 | disposition home or self-care (01) ==
LOC: BICMAMMO 11:00
PROVIDERS: ATTEND Family Medicine
DX: Z12.31 Encounter for screening mammogram for malignant neoplasm of breast (principal)
CPT/HCPCS: 77063; 77067

== ENCOUNTER 2020-08-16 07:10 | Outpatient (CLI) | payer MEDICARE ==
--- NOTE | 2020-08-16 08:19 | CT ---
CT BRAIN WITHOUT CONTRAST: Date: 08/16/2020 HISTORY: Parkinson's disease, fell and hit right side of head. COMPARISON: 10/07/2014. FINDINGS: Changes of cortical atrophy, chronic small vessel ischemic disease, and encephalomalacia in the right parietal lobe likely due to old infarction are again seen. Old infarction adjacent to the right fron eduardo horn is redemonstrated. The ventricular size is stable and the basilar cisterns are patent. No evidence of acute infarct, hemorrhage, midline shift, or abnormal extra-axial fluid collections ar e seen. The bony calvarium is intact. The visualized paranasal sinuses and mastoid air cells are well aerated. IMPRESSION: No CT evidence of acute intracranial process. POS: OFF
== END 2020-08-16 07:11 | disposition home or self-care (01) ==
LOC: BICCT 07:10
PROVIDERS: ATTEND Psychiatry & Neurology Neurology
DX: G20 Parkinson's disease (principal)
CPT/HCPCS: 70450

== ENCOUNTER 2020-09-13 10:14 | Outpatient (CLI) | payer MEDICARE | END 2020-09-13 10:15 | disposition home or self-care (01) | LOC: BICMAMMO 10:14 | PROVIDERS: ATTEND Family Medicine | DX: Z12.31 Encounter for screening mammogram for malignant neoplasm of breast (principal) | CPT/HCPCS: 77063; 77067 ==

== ENCOUNTER 2020-10-16 09:50 | Outpatient (CLI) | payer MEDICARE | END 2020-10-16 09:51 | disposition home or self-care (01) | LOC: BICRAD 09:50 | PROVIDERS: ATTEND Internal Medicine Cardiovascular Disease | DX: R07.9 Chest pain, unspecified (principal); M25.511 Pain in right shoulder; M25.512 Pain in left shoulder; M47.814 Spondylosis without myelopathy or radiculopathy, thoracic region; M25.78 Osteophyte, vertebrae | CPT/HCPCS: 71046 ==

== ENCOUNTER 2023-02-06 12:54 | Outpatient (CLI) | payer MEDICARE | END 2023-02-06 12:55 | disposition home or self-care (01) | LOC: BICMAMMO 12:54 | PROVIDERS: ATTEND Family Medicine | DX: Z12.31 Encounter for screening mammogram for malignant neoplasm of breast (principal) | CPT/HCPCS: 77063; 77067 ==

== ENCOUNTER 2023-09-05 07:53 | Emergency (ER) | payer MEDICARE ==
[2023-09-05 08:54] LABS: #Eosinphils 0.1 thou/uL (0.0-0.7); #Monocytes 0.9 thou/uL (0.11-0.59); #Neutrophils 6.7 thou/uL (1.40-6.50); %Basophils 0.1 % (0.0-1.0); %Eosinophils 0.8 % (0.0-10.0); %Lymphocytes 17.6 % (21.0-51.0); %Monocytes 9.2 % (0.0-10.0); %Neutrophils 72.1 % (42.0-75.0); Mean Corpuscular HGB CONC 32.6 g/dL (32.0-36.0); Mean Platelet Volume 10.1 fL (7.4-10.4); Platelet Count 152 10x3/uL (130-400); RBC Distribution Width 13.2 % (11.5-14.5); Red Blood Cell (RBC) Count 4.84 mill/uL (4.20-5.40); White Blood Cell (WBC) Count 9.2 10x3/uL (4.8-10.8)
[2023-09-05] MEDS ORDERED: Lidocaine 1% w/Epinephrine 1:100K 20 ML VIAL ONE (08:57)
[2023-09-05 09:08] LABS: PTT 26.8 sec (22.9-36.1); Prothrombin Time 13.5 sec (12.0-14.7)
[2023-09-05 09:21] LABS: ALT (SGPT) 8 U/L (8-55); AST (SGOT) 18 U/L (5-34); Albumin 3.9 g/dL (3.4-4.8); Alkaline Phosphatase 64 U/L (40-110); Anion Gap 10 mmol/L (10-20); BUN (Urea Nitrogen) 26 mg/dL (9.8-20.1); Bilirubin, Total 0.3 mg/dL (0.2-1.2); Calc. Creatinine Clearance 0 mL/min (70-130); Calcium 9.2 mg/dL (7.8-10.44); Carbon Dioxide 28 mmol/L (23-31); Chloride 104 mmol/L (98-107); Estimated GFR 52; Globulin 3.2 g/dL (2.4-3.5); Glucose 139 mg/dL (83-110); Potassium 3.9 mmol/L (3.5-5.1); Protein, Total 7.1 g/dL (5.8-8.1); Sodium 138 mmol/L (136-145)
[2023-09-05 09:24] LABS: Troponin I Less than 0.010 ng/mL (< 0.028)
== END 2023-09-05 10:30 | disposition home or self-care (01) ==
LOC: ERS 07:53
DX: R55 Syncope and collapse (principal); S01.01XA Laceration without foreign body of scalp, initial encounter; E03.9 Hypothyroidism, unspecified; I10 Essential (primary) hypertension; G20.A1 Parkinson's disease without dyskinesia, without mention of fluctuations; W19.XXXA Unspecified fall, initial encounter; Z86.73 Personal history of transient ischemic attack (TIA), and cerebral infarction without residual deficits; Z79.82 Long term (current) use of aspirin; Z79.899 Other long term (current) drug therapy
CPT/HCPCS: 36415; 70450; 71045; 80053; 84484; 85025; 85610; 85730; 93005

== ENCOUNTER 2023-09-05 18:11 | Observation (INO) | payer MEDICARE ==
[2023-09-05 19:00] LABS: #Monocytes 1.1 thou/uL (0.11-0.59); #Neutrophils 7.7 thou/uL (1.40-6.50); %Basophils 0.2 % (0.0-1.0); %Eosinophils 0.2 % (0.0-10.0); %Monocytes 10.2 % (0.0-10.0); %Neutrophils 72.2 % (42.0-75.0); Hemoglobin 14.5 g/dL (12.0-16.0); Mean Platelet Volume 10.4 fL (7.4-10.4); Platelet Count 162 10x3/uL (130-400); RBC Distribution Width 13.5 % (11.5-14.5); Red Blood Cell (RBC) Count 4.68 mill/uL (4.20-5.40); White Blood Cell (WBC) Count 10.7 10x3/uL (4.8-10.8)
[2023-09-05] MEDS ORDERED: Pantoprazole 40 MG VIAL ONE (19:06)
[2023-09-05 19:21] LABS: ALT (SGPT) 22 U/L (8-55); AST (SGOT) 27 U/L (5-34); Albumin 3.9 g/dL (3.4-4.8); Alkaline Phosphatase 61 U/L (40-110); Anion Gap 16 mmol/L (10-20); BUN (Urea Nitrogen) 26 mg/dL (9.8-20.1); Bilirubin, Total 0.5 mg/dL (0.2-1.2); Calc. Creatinine Clearance 0 mL/min (70-130); Calcium 9.5 mg/dL (7.8-10.44); Carbon Dioxide 21 mmol/L (23-31); Chloride 104 mmol/L (98-107); Estimated GFR 60; Globulin 3.6 g/dL (2.4-3.5); Glucose 120 mg/dL (83-110); Lipase 17 U/L (8-78); Potassium 4.8 mmol/L (3.5-5.1); Protein, Total 7.5 g/dL (5.8-8.1); Sodium 136 mmol/L (136-145); Troponin I Less than 0.010 ng/mL (< 0.028)
[2023-09-05] MEDS: Sodium Chloride 0.9% 1,000 ML IV SCH (23:09)
[2023-09-05 23:17] VITALS: BMI 35.1
[2023-09-05 23:46] LABS: Hematocrit 40.4 % (36.0-47.0); Hemoglobin 13.3 g/dL (12.0-16.0)
[2023-09-05 23:59] LABS: INR-International Normal Ratio 1.1; PTT 23.6 sec (22.9-36.1); Prothrombin Time 14.3 sec (12.0-14.7)
[2023-09-06 08:06] LABS: #Monocytes 0.8 thou/uL (0.11-0.59); #Neutrophils 4.2 thou/uL (1.40-6.50); %Basophils 0.1 % (0.0-1.0); %Eosinophils 0.4 % (0.0-10.0); %Lymphocytes 25.7 % (21.0-51.0); %Monocytes 12.2 % (0.0-10.0); %Neutrophils 61.5 % (42.0-75.0); Hematocrit 39.1 % (36.0-47.0); Hemoglobin 12.8 g/dL (12.0-16.0); Mean Corpuscular HGB CONC 32.7 g/dL (32.0-36.0); Mean Corpuscular Hemoglobin 31.4 pg (27.0-31.0); Mean Corpuscular Volume 95.8 fl (78.0-98.0); Mean Platelet Volume 10.2 fL (7.4-10.4); Platelet Count 132 10x3/uL (130-400); RBC Distribution Width 13.6 % (11.5-14.5); Red Blood Cell (RBC) Count 4.08 mill/uL (4.20-5.40); White Blood Cell (WBC) Count 6.8 10x3/uL (4.8-10.8)
[2023-09-06 08:39] LABS: Anion Gap 11 mmol/L (10-20); BUN (Urea Nitrogen) 16 mg/dL (9.8-20.1); Calc. Creatinine Clearance 68 mL/min (70-130); Calcium 8.5 mg/dL (7.8-10.44); Carbon Dioxide 23 mmol/L (23-31); Chloride 109 mmol/L (98-107); Estimated GFR 68; Glucose 94 mg/dL (83-110); Potassium 3.9 mmol/L (3.5-5.1); Sodium 139 mmol/L (136-145)
[2023-09-06] MEDS: Pantoprazole 40 MG VIAL IVP SCH (08:40)
[2023-09-06] MEDS: Ondansetron PF 4 MG/2 ML Vial IVP PRN (08:40)
[2023-09-06] MEDS: Acetaminophen 650 MG Suppository PR PRN (12:29)
[2023-09-06] MEDS: Ondansetron ODT 4 MG TAB PO PRN (14:37)
[2023-09-06] MEDS: Acetaminophen 325 MG TAB PO PRN (21:11)
[2023-09-06] MEDS: Carbidopa/Levodopa 25-100 mg Tablet PO SCH (21:13)
[2023-09-07] MEDS: Ezetimibe 10 MG TAB PO SCH (09:03)
[2023-09-07] MEDS: Nebivolol HCl 5 MG TAB PO SCH (09:04)
[2023-09-07] MEDS: Cholecalciferol 1,000 UNITS (25 MCG) TAB PO SCH (09:04)
[2023-09-07] MEDS: Venlafaxine HCl XR 75 MG CAP PO SCH (09:04)
[2023-09-07] MEDS: Amlodipine 5 MG TAB PO SCH (09:06)
[2023-09-07] MEDS: Thyroid 60 MG TAB PO SCH (09:06)
[2023-09-07] MEDS: FLU VACC QS2023(65UP)/MF59C/PF 60 MCG/0.5 ML SYRINGE IM ONE (09:14)
[2023-09-07 16:27] VITALS: BP 124/59; TEMP 97.4
== END 2023-09-07 16:55 | disposition home or self-care (01) ==
LOC: ERS 18:11 → 2NO 22:00 → INTOOBSV 22:00
PROVIDERS: ADMIT Student in an Organized Health Care Education/Training Program; ATTEND Internal Medicine
PROC: B246YZZ Ultrasonography of Right and Left Heart using Other Contrast (ICD-10-PCS; principal; 2023-09-05)
DX: R55 Syncope and collapse (principal); K62.5 Hemorrhage of anus and rectum; K59.00 Constipation, unspecified; G20.A1 Parkinson's disease without dyskinesia, without mention of fluctuations; I10 Essential (primary) hypertension; E03.9 Hypothyroidism, unspecified; Z90.710 Acquired absence of both cervix and uterus; Z96.652 Presence of left artificial knee joint; Z79.899 Other long term (current) drug therapy; Z79.82 Long term (current) use of aspirin; Z88.5 Allergy status to narcotic agent; Z79.02 Long term (current) use of antithrombotics/antiplatelets; Z79.890 Hormone replacement therapy; S01.01XA Laceration without foreign body of scalp, initial encounter
CPT/HCPCS: 12002; 70450; 71045; 74177; 80048; 80053 ×2; 83690; 84484 ×2; 85014; 85018; 85025 ×3; 85610 ×2; 85730 ×2; 86850; 86900; 86901; 93005; 93306; 96374; 96375; 96376; 97116; 99285; G0378 ×4; 36415; 82274; C9113; J2405; J7050; Q0162

== ENCOUNTER 2023-12-19 18:46 | Observation (INO) | payer MEDICARE ==
[2023-12-19 19:45] LABS: #Basophils Less than 0.03 10x3/uL (0.0-0.2); %Basophils 0.2 % (0.0-1.0); %Eosinophils 0.9 % (0.0-10.0); %Lymphocytes 22.9 % (21.0-51.0); %Neutrophils 64.8 % (42.0-75.0); Hematocrit 40.9 % (36.0-47.0); Hemoglobin 13.8 g/dL (12.0-16.0); Mean Corpuscular HGB CONC 33.7 g/dL (32.0-36.0); Mean Corpuscular Hemoglobin 31.5 pg (27.0-31.0); Mean Corpuscular Volume 93.4 fL (78.0-98.0); Platelet Count 148 10x3/uL (130-400); RBC Distribution Width 13.2 % (11.5-14.5); Red Blood Cell (RBC) Count 4.38 mill/uL (4.20-5.40)
[2023-12-19] MEDS ORDERED: Meclizine HCl 25 MG TAB ONE (20:07)
[2023-12-19 20:08] LABS: ALT (SGPT) Less than 5 U/L (8-55); AST (SGOT) 18 U/L (5-34); Albumin 3.4 g/dL (3.4-4.8); Alkaline Phosphatase 57 U/L (40-110); Anion Gap 15 mmol/L (10-20); BUN (Urea Nitrogen) 22 mg/dL (9.8-20.1); Bilirubin, Total 0.3 mg/dL (0.2-1.2); Calc. Creatinine Clearance 0 mL/min (70-130); Calcium 9.2 mg/dL (7.8-10.44); Carbon Dioxide 22 mmol/L (23-31); Chloride 107 mmol/L (98-107); Estimated GFR 59; Glucose 129 mg/dL (83-110); Potassium 4.2 mmol/L (3.5-5.1); Protein, Total 6.4 g/dL (5.8-8.1); Sodium 140 mmol/L (136-145)
[2023-12-19 21:43] LABS: Bacteria/HPF None Seen HPF (None Seen); Bilirubin Negative (Negative); Blood, Urine Negative (Negative); CAUTI Indications for Culture Pelvic or flank pain; Clarity Clear (Clear); Glucose, Urine (Dipstick) Normal (Negative); Ketone, Urine Negative (Negative); Leukocyte Negative Leu/uL (Negative); Nitrite Negative (Negative); Protein, Urine (Dipstick) Negative (Neg-Trace); RBC/HPF 0-3 HPF (0-3); Specific Gravity, Urine 1.008 (1.002-1.036); Squamous Epithelial 0-3 HPF (0-3); Urobilinogen Normal mg/dL (Less than 2); WBC/HPF 0-3 HPF (0-3)
[2023-12-19 21:47] LABS: Urine Culture Reflex No No
[2023-12-19] MEDS ORDERED: Aspirin Chewable 81 MG TAB ONE (22:06)
[2023-12-19] MEDS ORDERED: Acetaminophen 325 MG TAB PO PRN (23:42)
[2023-12-19] MEDS ORDERED: Ondansetron PF 4 MG/2 ML Vial IVP PRN (23:42)
[2023-12-20 01:40] VITALS: BMI 35.5
[2023-12-20 04:27] LABS: #Basophils Less than 0.03 10x3/uL (0.0-0.2); %Basophils 0.1 % (0.0-1.0); %Eosinophils 0.4 % (0.0-10.0); %Lymphocytes 34.2 % (21.0-51.0); %Monocytes 12.7 % (0.0-10.0); %Neutrophils 52.5 % (42.0-75.0); Hematocrit 39.2 % (36.0-47.0); Hemoglobin 12.9 g/dL (12.0-16.0); Mean Corpuscular HGB CONC 32.9 g/dL (32.0-36.0); Mean Corpuscular Hemoglobin 31.5 pg (27.0-31.0); Mean Corpuscular Volume 95.6 fL (78.0-98.0); Mean Platelet Volume 10.4 fL (7.4-10.4); Platelet Count 147 10x3/uL (130-400); RBC Distribution Width 13.2 % (11.5-14.5)
[2023-12-20] MEDS: Sodium Chloride 0.9% 1,000 ML IV SCH (04:33)
[2023-12-20 05:08] LABS: Hemoglobin A1c 5.6 % (4.0-6.0)
[2023-12-20 05:21] LABS: Anion Gap 15 mmol/L (10-20); BUN (Urea Nitrogen) 18 mg/dL (9.8-20.1); Calc. Creatinine Clearance 74 mL/min (70-130); Calcium 8.5 mg/dL (7.8-10.44); Carbon Dioxide 21 mmol/L (23-31); Cardiac Risk 4.7 (Less than 4.5); Chloride 109 mmol/L (98-107); Cholesterol 147 mg/dl (< 200 Desired); Estimated GFR 74; Glucose 96 mg/dL (83-110); HDL Cholesterol 31 mg/dL (>60 Neg Risk); LDL Cholesterol, Calculated 80 mg/dL; Sodium 141 mmol/L (136-145); Triglycerides 180 mg/dL (Less than 150)
[2023-12-20] MEDS: Meclizine HCl 25 MG TAB PO SCH (05:43)
[2023-12-20] MEDS: Venlafaxine HCl XR 75 MG CAP PO SCH (08:06)
[2023-12-20] MEDS: Ezetimibe 10 MG TAB PO SCH (08:06)
[2023-12-20] MEDS: Clopidogrel Bisulfate 75 MG TAB PO SCH (08:06)
[2023-12-20] MEDS: Carbidopa/Levodopa 25-100 mg Tablet PO SCH (08:06)
[2023-12-20] MEDS: Cholecalciferol 1,000 UNITS (25 MCG) TAB PO SCH (08:06)
[2023-12-20] MEDS: Aspirin 81 mg Enteric Coated Tablet PO SCH (08:06)
[2023-12-20] MEDS: Nebivolol HCl 5 MG TAB PO SCH (08:58)
[2023-12-20] MEDS: Atorvastatin Calcium 40 MG TAB PO SCH (21:14)
[2023-12-21 08:27] VITALS: TEMP 98.1
[2023-12-21 11:57] VITALS: BP 157/83
== END 2023-12-21 13:11 | disposition home or self-care (01) ==
LOC: ERS 18:46 → 2SE 23:30
PROVIDERS: ADMIT Internal Medicine; ATTEND Internal Medicine
DX: R42 Dizziness and giddiness (principal); E03.9 Hypothyroidism, unspecified; I10 Essential (primary) hypertension; G20.A1 Parkinson's disease without dyskinesia, without mention of fluctuations; Z86.73 Personal history of transient ischemic attack (TIA), and cerebral infarction without residual deficits; Z88.5 Allergy status to narcotic agent; Z79.02 Long term (current) use of antithrombotics/antiplatelets; Z79.82 Long term (current) use of aspirin; Z79.890 Hormone replacement therapy; Z79.899 Other long term (current) drug therapy; Z90.710 Acquired absence of both cervix and uterus; Z98.890 Other specified postprocedural states; Z96.653 Presence of artificial knee joint, bilateral
CPT/HCPCS: 70450; 70551; 80048; 80053; 80061; 81001; 83036; 85025 ×2; 87086; 93005; 93880; 97110; 97116 ×2; 99285; J7050; 36415; G0378